=== PATIENT | female | born 1985 | race Caucasian/White ===

== ENCOUNTER 2021-04-28 13:50 | Emergency (ER) | payer SELFPAY ==
[~2021-04-28] VITALS: Ht 152.4 cm; Wt 45.0 kg
[2021-04-28] MEDS ORDERED: ONDANSETRON HCL 4MG/2ML INJ IV STA (15:02)
[2021-04-28] MEDS ORDERED: SODIUM CHLORIDE 0.9% 1,000 ML IV ONE (15:15)
[2021-04-28 16:34] VITALS: BP 98/67
== END 2021-04-28 17:03 | disposition home or self-care (01) ==
LOC: ER 13:50
DX: F10.129 Alcohol abuse with intoxication, unspecified (principal); Y90.9 Presence of alcohol in blood, level not specified
CPT/HCPCS: 82962; 99283; J7030; Z7610